=== PATIENT | female | born 1995 | race Caucasian/White ===

== ENCOUNTER 2020-06-22 00:54 | Emergency (ER) | payer BC ==
[~2020-06-22] VITALS: Ht 165.1 cm; Wt 63.5 kg
[2020-06-22 01:04] VITALS: BP 134/99
--- NOTE | 2020-06-22 01:26 | NUR ---
RADIOLOGY AT BEDSIDE FOR XRAY
--- NOTE | 2020-06-22 01:28 | NUR ---
XRAY AT BEDSIDE.
[2020-06-22] MEDS ORDERED: IBUPROFEN 600 MG TABLET PO ONE ×2 (01:30→01:42)
--- NOTE | 2020-06-22 01:45 | NUR ---
BERENICE WRAP APPLIED TO R KNEE
--- NOTE | 2020-06-22 02:01 | NUR ---
Patient discharged to home in stable condition. Written and verbal after care instructions given. Patient verbalizes understanding of instruction.
== END 2020-06-22 02:20 | disposition home or self-care (01) ==
LOC: ER 00:54
DX: S89.81XA Other specified injuries of right lower leg, initial encounter (principal); Z59.0 Homelessness; W22.8XXA Striking against or struck by other objects, initial encounter; Y93.01 Activity, walking, marching and hiking; Y92.89 Other specified places as the place of occurrence of the external cause; Y99.8 Other external cause status
CPT/HCPCS: 73564-TC

== ENCOUNTER 2020-06-30 01:22 | Emergency (ER) | payer BC ==
[~2020-06-30] VITALS: Ht 167.6 cm; Wt 72.6 kg
[2020-06-30 01:36] VITALS: BP 143/91
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
[2020-06-30] MEDS ORDERED: BACI/NEOM/POLY B OINT PKT 1 UDPKT PACKET TP ONE (02:00)
[2020-06-30] MEDS ORDERED: HYDROCODONE/APAP 10/325MG 1 EA TABLET ONE (02:05)
[2020-06-30] MEDS ORDERED: ONDANSETRON 4 MG TAB.RAPDIS ONE (02:05)
--- NOTE | 2020-06-30 02:27 | NUR ---
Patient discharged to home in stable condition. Written and verbal after care instructions given. Patient verbalizes understanding of instruction.pt. ambulatory with a steady gait
[2020-06-30] MEDS ORDERED: HYDROCODONE/APAP 10/325MG 1 EA TABLET PO ONE (02:30)
[2020-06-30] MEDS ORDERED: ONDANSETRON 4 MG TAB.RAPDIS SL ONE (02:30)
== END 2020-06-30 02:28 | disposition home or self-care (01) ==
LOC: ER 01:24
DX: S50.812A Abrasion of left forearm, initial encounter (principal); S50.811A Abrasion of right forearm, initial encounter; Z59.0 Homelessness; Y08.89XA Assault by other specified means, initial encounter; Y93.89 Activity, other specified; Y92.89 Other specified places as the place of occurrence of the external cause; Y99.8 Other external cause status
CPT/HCPCS: 73090; 99283; Q0162

== ENCOUNTER 2020-07-11 21:04 | Emergency (ER) | payer BC ==
[~2020-07-11] VITALS: Ht 167.6 cm; Wt 72.6 kg
[2020-07-11] MEDS ORDERED: MORPHINE SULFATE INJ 4 MG/ML DISP.SYRIN ONE (21:54)
[2020-07-11] MEDS ORDERED: ONDANSETRON HCL/PF 4 MG/2 ML VIAL ONE (21:54)
[2020-07-11] MEDS ORDERED: ONDANSETRON HCL/PF 4 MG/2 ML VIAL IVP ONE (22:00)
[2020-07-11] MEDS ORDERED: IV NS 0.9% 1,000 ML BAG IV ONE (22:00)
[2020-07-11] MEDS ORDERED: MORPHINE SULFATE INJ 2 MG/ML DISP.SYRIN IV ONE (22:00)
[2020-07-11 22:10] LABS: APPEARANCE,URINE SL CLOUDY (CLEAR); BILIRUBIN,URINE NEGATIVE (NEGATIVE); BLOOD, URINE NEGATIVE Ery/uL (NEGATIVE); COLOR,URINE YELLOW (YELLOW); KETONES,URINE NEGATIVE (NEGATIVE); LEUKOCYTE ESTERASE ,URINE NEGATIVE (NEGATIVE); NITRITE, URINE NEGATIVE (NEGATIVE); PROTEIN,URINE TRACE mg/dl (NEGATIVE); UGLUCOSE NEGATIVE (NEGATIVE)
[2020-07-11 22:15] LABS: BACTERIA,URINE None seen /HPF (None Seen); MUCUS,URINE RARE /LPF (None Seen); RBC,URINE 0-2 /HPF (0-2); SQUAMOUS EPITHELIAL CELL,UR 0-2 /HPF (None Seen); WBC,URINE 0-2 /HPF (0-3)
--- NOTE | 2020-07-11 22:16 | NUR ---
BIBSELF C/O GENERALIZED ABDOMINAL PAIN X1 DAY +NAUSEA,+VOMITTING,+DIARRHEA, -FEVER. PT AAOX4, VSS. RR EVEN & UNLABORED. DENIES CP, SOB, DIZZINESS AT THIS TIME. PT SEEN & EVAL'D BY DONNY BARRERA. MEDICATED ORDERED, PT GODWIN WELL. WILL CONT TO MONITOR.
[2020-07-11 22:20] LABS: BASOPHILS % (AUTO) 0.5 % (0.0-2.0); EOSINOPHILS % (AUTO) 1.1 % (0.0-6.0); HEMATOCRIT 45 % (33-45); HEMOGLOBIN 14.3 g/dL (11.5-14.8); LYMPHOCYTES # (AUTO) 0.9 /CMM (0.8-4.8); LYMPHOCYTES % (AUTO) 10.1 % (20.0-44.0); MEAN CORPUSCULAR HGB CONC 32 g/dl (31.0-36.0); MEAN CORPUSCULAR VOLUME 80 fL (82-100); MONOCYTES # (AUTO) 0.3 /CMM (0.1-1.30); MONOCYTES % (AUTO) 3.8 % (2.0-12.0); NEUTROPHILS # (AUTO) 7.2 /CMM (1.8-8.9); NEUTROPHILS % (AUTO) 84.5 % (43.0-81.0); PLATELET COUNT (AUTO) 207 /CMM (150-450); RED BLOOD CELL COUNT(AUTO) 5.54 MIL/uL (4.0-5.2); WHITE BLOOD COUNT (AUTO) 8.5 K/uL (4.3-11.0)
[2020-07-11 22:34] LABS: BILIRUBIN,DIRECT 0.1 mg/dL (0.0-0.2); BILIRUBIN,TOTAL 0.3 mg/dL (0.2-1.0); CALCIUM, SERUM 8.4 mg/dL (8.5-10.1); CREATININE 0.8 mg/dL (0.6-1.3); POTASSIUM 3.8 mmol/L (3.5-5.1); TOTAL PROTEIN, SERUM 7.1 g/dL (6.4-8.2)
--- NOTE | 2020-07-11 23:03 | NUR ---
Patient discharged to home in stable condition. Written and verbal after care instructions given. Patient verbalizes understanding of instruction.IV removed. Catheter intact and site benign. Pressure and 4x4 applied to site. No bleeding noted.
[2020-07-11 23:04] VITALS: BP 132/80
== END 2020-07-11 23:05 | disposition home or self-care (01) ==
LOC: ER 21:07
DX: A08.4 Viral intestinal infection, unspecified (principal); R11.2 Nausea with vomiting, unspecified; Z59.0 Homelessness
CPT/HCPCS: 36415; 80048; 80076; 81001; 83690; 84703; 85025; 96361; 96374; 96375; 99284; J2270; J2405; J7030; 81000-TC

== ENCOUNTER 2021-09-28 19:54 | Emergency (ER) | payer BC ==
--- NOTE | 2021-09-28 20:10 | NUR ---
CALLED FOR TRIAGE , NO ANSWER
--- NOTE | 2021-09-28 20:12 | NUR ---
CALLED FOR TRIAGE , NO ANSWER
--- NOTE | 2021-09-28 20:41 | NUR ---
CALLED FOR TRIAGE , NO ANSWER
== END 2021-09-28 23:54 | disposition left against medical advice (07) ==
LOC: ER 19:57
DX: Z53.21 Procedure and treatment not carried out due to patient leaving prior to being seen by health care provider (principal)

== ENCOUNTER 2022-06-19 12:20 | Emergency (ER) | payer BC ==
[~2022-06-19] VITALS: Ht 167.6 cm; Wt 68.0 kg
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
--- NOTE | 2022-06-19 12:32 | NUR ---
PT SEEN BY DR. WOODRUFF FOR EVSUSHIL.
[2022-06-19] MEDS ORDERED: CODE1CAP32 PO (12:36)
[2022-06-19 12:44] VITALS: BP 119/101
--- NOTE | 2022-06-19 12:44 | NUR ---
Patient discharged to home in stable condition. Written and verbal after care instructions given. Patient verbalizes understanding of instruction.
== END 2022-06-19 12:44 | disposition home or self-care (01) ==
LOC: ER 12:23
DX: R51.9 Headache, unspecified (principal); Z59.00 Homelessness unspecified

== ENCOUNTER 2022-06-23 11:48 | Emergency (ER) | payer BC ==
[~2022-06-23] VITALS: Ht 167.6 cm; Wt 68.0 kg
[~2022-06-23 11:48] MED LIST: CODE1CAP32 PO
[2022-06-23 11:56] VITALS: BP 156/94
[2022-06-23] MEDS ORDERED: IBUPROFEN 600 MG TABLET PO ONE (12:30)
[2022-06-23] MEDS ORDERED: ACETAMINOPHEN 325 MG TABLET PO ONE (12:30)
[2022-06-23] MEDS ORDERED: ACETAMINOPHEN 325 MG TABLET ONE (12:34)
[2022-06-23] MEDS ORDERED: IBUPROFEN 600 MG TABLET ONE (12:34)
[2022-06-23] MEDS ORDERED: IBUP-1955 PO (12:35)
[2022-06-23] MEDS ORDERED: CYCL5TAB PO (12:35)
--- NOTE | 2022-06-23 13:15 | NUR ---
Declines Placement/[facility] at this time states "I dont need it". Patient discharged to home in stable condition. Written and verbal after care instructions given. Patient verbalizes understanding of instruction.
== END 2022-06-23 13:14 | disposition home or self-care (01) ==
LOC: ER 11:55
DX: M54.50 Low back pain, unspecified (principal); Z87.39 Personal history of other diseases of the musculoskeletal system and connective tissue; Z59.00 Homelessness unspecified; Z79.899 Other long term (current) drug therapy

== ENCOUNTER 2022-07-08 09:25 | Emergency (ER) | payer BC ==
[~2022-07-08] VITALS: Ht 167.6 cm; Wt 68.0 kg
[~2022-07-08 09:25] MED LIST changes: +CYCL5TAB PO; +IBUP-1955 PO
[2022-07-08 09:37] VITALS: BP 133/80
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
[2022-07-08] MEDS ORDERED: ACETAMINOPHEN ES 500 MG TABLET ONE (09:57)
[2022-07-08] MEDS ORDERED: ACETAMINOPHEN ES 500 MG TABLET PO ONE (10:00)
--- NOTE | 2022-07-08 10:06 | NUR ---
URINE COLLECTED AND SENT TO LAB
[2022-07-08] MEDS ORDERED: ACET-2605 PO (10:24)
== END 2022-07-08 10:36 | disposition home or self-care (01) ==
LOC: ER 09:28
DX: M25.552 Pain in left hip (principal); Z59.00 Homelessness unspecified
CPT/HCPCS: 84703-TC

== ENCOUNTER 2022-07-10 14:02 | Emergency (ER) | payer BC ==
[~2022-07-10] VITALS: Ht 170.2 cm; Wt 68.0 kg
[~2022-07-10 14:02] MED LIST changes: +ACET-2605 PO
[2022-07-10 14:08] VITALS: BP 135/92
--- NOTE | 2022-07-10 14:45 | NUR ---
Ambulatory- gait even and steady NO obvious distress
[2022-07-10] MEDS ORDERED: ACETAMINOPHEN ES 500 MG TABLET PO ONE (15:00)
[2022-07-10] MEDS ORDERED: ACETAMINOPHEN ES 500 MG TABLET ONE (15:03)
--- NOTE | 2022-07-10 16:14 | NUR ---
Patient discharged to home in stable condition. Written and verbal after care instructions given. Patient verbalizes understanding of instruction.
== END 2022-07-10 16:19 | disposition home or self-care (01) ==
LOC: ER 14:07
DX: M25.561 Pain in right knee (principal); Z76.5 Malingerer [conscious simulation]; Z59.00 Homelessness unspecified; Z79.899 Other long term (current) drug therapy; W19.XXXA Unspecified fall, initial encounter; Y93.89 Activity, other specified; Y92.89 Other specified places as the place of occurrence of the external cause; Y99.8 Other external cause status
CPT/HCPCS: 73564-TC